=== PATIENT | male | born 1965 | race Caucasian/White ===

== ENCOUNTER 2017-07-12 11:49 | Emergency (ER) | payer BC, OTHER ==
[~2017-07-12] VITALS: Ht 175.3 cm; Wt 90.9 kg
[~2017-07-12 11:49] MED LIST: FLEXERIL5 MG PO; NAPROSYN500 MG PO; PERCOCET 10/1 TABLET PO
[2017-07-12 12:35] LABS: HEMATOCRIT 40.3 % (38.0-50.0); MCHC 34.7 G/DL (30.0-36.0); MEAN PLAT.VOLUME 8.3 uM^3 (9.0-12.4); PLATELET COUNT 315 K/uL (156-360); RBC DIS.WIDTH-CV 11.7 % (11.8-14.6); RBC DIS.WIDTH-SD 40.8 % (39-53); RED BLOOD COUNT 4.24 M/uL (4.00-5.50); WHITE BLOOD COUNT 16.3 K/uL (4.1-10.2)
[2017-07-12 12:48] LABS: CHLORIDE 107 mEq/L (99-109); POTASSIUM 4.4 mEq/L (3.7-5.4); SODIUM 140 mEq/L (136-147)
[2017-07-12 12:51] LABS: GLUCOSE 112 mg/dL (70-99)
[2017-07-12 12:52] LABS: ANION GAP 11 MEQ/L (2-14)
[2017-07-12 12:53] LABS: TOTAL BILIRUBIN 0.4 mg/dL (0.0-1.0)
[2017-07-12 12:54] LABS: ALKALINE PHOSPHATASE 61 IU/L (3-129); GFR ESTIMATE (CALCULATED) > 59 mL/min/
[2017-07-12 12:55] LABS: UREA NITROGEN (BUN) 15 mg/dL (9-23)
[2017-07-12 12:57] LABS: CREATINE KINASE 117 IU/L (1-294)
[2017-07-12 13:32] LABS: ADD MIUA? NO; BILIRUBIN NEGATIVE; BLOOD NEGATIVE; COLOR YELLOW ((YELLOW)); GLUCOSE (STRIP) NEGATIVE; KETONES 5; LEUKOCYTES NEGATIVE; NITRITE NEGATIVE; PROTEIN (STRIP) NEGATIVE; SPECIFIC GRAVITY 1.024 (1.000-1.030); UCUL ADDED? NO; UROBILINOGEN 0.2 MG/DL (0.2-1.0)
[2017-07-12 13:39] LABS: AMPHETAMINE NEGATIVE (500 ng/mL); BARBITURATES NEGATIVE (200 ng/mL); BENZODIAZEPINES NEGATIVE (150 ng/mL); COCAINE NEGATIVE (150 ng/mL); INTERNAL CONTROLS VALID? YES; METHADONE NEGATIVE (200 ng/mL); METHAMPHETAMINE NEGATIVE (500 ng/mL); OPIATES (MORPHINE) NEGATIVE (100 ng/mL); OXYCODONE PRESUMPTIVE POSITIVE (100 ng/mL); PHENCYCLIDINE NEGATIVE (25 ng/mL); PROPOXYPHENE NEGATIVE (300 ng/mL); THC CANNABINOIDS PRESUMPTIVE POSITIVE (50 ng/mL); TRICYCLIC ANTIDEPRESSANTS NEGATIVE (300 ng/mL)
[2017-07-12 13:40] LABS: ADD MEDTOX COMMENT Y
[2017-07-12] MEDS ORDERED: NAPROSYN500 MG PO (14:50)
[2017-07-12 16:43] VITALS: BP 115/82
== END 2017-07-12 16:48 | disposition home or self-care (01) ==
LOC: EME 11:49
PROVIDERS: Emergency Medicine
DX: B34.9 Viral infection, unspecified (principal); F12.10 Cannabis abuse, uncomplicated; F17.200 Nicotine dependence, unspecified, uncomplicated; Z88.0 Allergy status to penicillin
CPT/HCPCS: 71020; 80053; 81003; 82550; 84999; 85027; 99281; 99285; J7030